=== PATIENT | female | born 1990 | race Caucasian/White ===

== ENCOUNTER 2021-02-11 11:36 | Emergency (ER) | payer OTHER ==
[2021-02-11 12:04] VITALS: BP 135/95; PULSE 77; TEMP 97.9; BMI 32.5
[2021-02-11] MEDS ORDERED: BACITRACIN 15 GM TUBE TOPICAL OINTMENT TP ONE (12:19)
[2021-02-11] MEDS ORDERED: DIPHTH,PERTUSS(ACELL),TET 0.5 ML DISP.SYRIN IM ONE ×2 (12:19→12:30)
[2021-02-11] MEDS ORDERED: BACITRACIN 15 GM TUBE TOPICAL OINTMENT ONE (12:30)
== END 2021-02-11 12:47 | disposition home or self-care (01) ==
LOC: JERFT 11:36
PROC: 3E0234Z Introduction of Serum, Toxoid and Vaccine into Muscle, Percutaneous Approach (ICD-10-PCS; principal; 2021-02-11)
DX: S61.452A Open bite of left hand, initial encounter (principal)
CPT/HCPCS: 90715; 99284-25

== ENCOUNTER 2021-03-18 23:52 | Emergency (ER) | payer OTHER ==
[2021-03-19 00:13] VITALS: BP 126/78; PULSE 81; TEMP 97.8; BMI 43.2
[2021-03-19] MEDS ORDERED: ACETAMINOPHEN 325 MG TABLET (FP) PO ONE (00:19)
[2021-03-19] MEDS ORDERED: LIDOCAINE HCL 1%, 10 MG/ML (50 mL VIAL) INF ONE (00:19)
[2021-03-19] MEDS ORDERED: ACETAMINOPHEN 325 MG TABLET (FP) ONE (00:59)
[2021-03-19] MEDS ORDERED: LIDOCAINE HCL 2% (20ML MULTI-DOSE VIAL) ONE (01:00)
[2021-03-19] MEDS ORDERED: LIDOCAINE HCL 2% (50ML VIAL) SQ ONE (01:02)
== END 2021-03-19 02:30 | disposition home or self-care (01) ==
LOC: JER 23:52
PROC: 0HQFXZZ Repair Right Hand Skin, External Approach (ICD-10-PCS; principal; 2021-03-18)
DX: S61.411A Laceration without foreign body of right hand, initial encounter (principal)
CPT/HCPCS: 73110-TC-RT-FY; 73130-TC-RT-FY; 99283-25